=== PATIENT | male | born 2000 | race Caucasian/White ===

== ENCOUNTER 2021-04-22 14:36 | Emergency (ER) | payer SELFPAY ==
[2021-04-22] MEDS ORDERED: IBUPROFEN600 MG PO (16:18)
== END 2021-04-22 16:32 | disposition home or self-care (01) ==
LOC: ER1 14:36
DX: S93.401A Sprain of unspecified ligament of right ankle, initial encounter (principal); X50.0XXA Overexertion from strenuous movement or load, initial encounter
CPT/HCPCS: 73590; 73610; 99284